=== PATIENT | male | born 1985 | race African-American/Black ===

== ENCOUNTER 2018-12-22 08:32 | Emergency (ER) | payer MEDICAID, SELFPAY ==
[2018-12-22 08:33] VITALS: BP 130/75; PULSE 84; RESP 16; TEMP 36.6; O2SAT 99; BMI 19.4
--- NOTE | 2018-12-22 08:48 | US_ITS ---
STUDY: ABDOMINAL ULTRASOUND - RIGHT UPPER QUADRANT REASON FOR VISIT: Male, 33 years old. Right upper quadrant abdominal pain and vomiting. TECHNIQUE: Ultrasound evaluation of the right upper quadrant was performed with real-time and static ballard-scale imaging. TECHNICAL QUALITY: Adequate. COMPARISON: Prior comparison studies are not available for review at this time. FINDINGS: Liver: The liver measures 14.3 cm. There is normal echogenicity of the liver. The bile ducts are within normal limits. There is hepatic color flow. The direction of portal flow is hepatopetal. There is no demonstrated mass lesion. Gallbladder: Normal distended gallbladder. The gallbladder wall measures 1.7 mm. There is a negative sonographic Chavira's sign. There is no pericholecystic fluid. There are no gallstones. Common Bile Duct (C.B.D.): The common bile duct measures 1.7 mm. Pancreas: Normal size of the head, body and tail of the pancreas. There is normal echogenicity of the pancreas. There is no demonstrated pancreatic mass or cyst. Right Kidney: Normal size of the right kidney. The right kidney measures 10.7 x 5.7 x 4.0 cm. Normal renal cortex. The right cortex measures 2.2 cm. There is no demonstrated renal mass or cyst. There is no right hydronephrosis. US/Gallbladder IMPRESSION: Normal right upper quadrant ultrasound examination. Electronically Signed: Rebecca Davis MD at 9:51 EDT , Service support ,
--- NOTE | 2018-12-22 08:49 | ED.DCSUM_ITS ---
History of Present Illness Chief Complaint: Abd Pain Informant: Patient Onset: Days - 4 Narrative: 4-day history mid abdominal pain with vomiting diarrhea. No hematemesis, melena, or hematochezia. States been having daily episodes of this. Reports having food aversion, ate gonzalez last night which worsened the symptoms. No fever, chills, sweats. States he drinks alcohol occasionally every 2 months. Tobacco history. Denies any illicit drugs. No history of gastric ulcers or kidney injury. Last vomiting last night, last loose stools this morning. No recent antibiotics. No recent travel. Denies eating any abnormal foods prior to symptoms occurring. States does have pain in the upper abdomen also. Reports pain goes to the left side of his back. States urine frequency. Denies any daily medications. Denies any surgical history. Prior similar symptoms: No Past Medical History - Allergies and Home Meds Allergies/Adverse Reactions: Allergies No Known Allergies Allergy (Verified 12/22/18 08:33) Primary Care Physician: Care Physician,No Primary [NON-STAFF] - Smoking Status: Current every day smoker Review of Systems General: Denies: Chills, Fever, Sweats Eyes: Denies: Visual changes - bilaterally, Diplopia ENT: Denies: Rhinorrhea, Sore throat Cardiovascular: Denies: Chest pain, Palpitations Respiratory: Denies: Dyspnea, Cough, Dyspnea on exertion Gastrointestinal: Reports: Abdominal pain, Nausea, Vomiting, Diarrhea. Denies: Melena, Hematochezia Genitourinary: Denies: Dysuria, Hematuria, Frequency Musculoskeletal: Denies: Back pain, Extremity Pain Skin: Denies: Rash, Wounds Neurological: Denies: Headache, Weakness, Numbness Physical Exam Vital Signs/Narrative: Vital Signs Temp Pulse Resp BP Pulse Ox 12/22/18 08:33 98 F 84 16 130/75 H 99 Inital Vital Signs reviewed: Yes General: Well nourished, Well developed, No Acute Distress Head: Normocephalic, Atraumatic Eyes: Perrl, EOMI ENT: No rhinorrhea, Dry mucous membranes Neck: Supple, Nontender Cardiovascular: Regular rate, Regular rhythm, No murmurs Respiratory: No distress, CTA bilaterally, Chest nontender Abdomen: Soft, Nondistended, Normal bowel sounds, Tender, - - Mild right upper quadrant tenderness without guarding or rebound. Mild mid abdominal pain without guarding or rebound. Negative Chavira's or McBurney's tenderness. Back: Nontender, Normal Inspection. Negative for: CVA tenderness Extremities: Nontender, No edema Skin: Normal color, No rash Neurological: Alert, Oriented x3, Cranial nerves II-XII grossly intact, Normal Strength, Normal Sensation Psychological: Normal affect, Normal Mood Diagnostic/Tx/Re-eval Abnormal Lab Results 12/22/18 12/22/18 12/22/18 09:00 09:00 09:00 WBC 5.8 RBC 5.36 Hgb 15.2 Hct 47.5 MCV 88.6 MCH 28.4 MCHC 32.0 RDW Std Deviation 42.6 RDW Coeff of Kaya 13.1 Plt Count 241 MPV 9.5 Immature Gran % (Auto) 0.200 Neut % (Auto) 49.4 Lymph % (Auto) 42.3 H [place] % (Auto) 5.7 Eos % (Auto) 1.9 Baso % (Auto) 0.5 Absolute Neuts (auto) 2.9 Absolute Lymphs (auto) 2.46 Nucleated RBC % 0 Sodium 139 Potassium 3.7 Chloride 106 Carbon Dioxide 28.0 Anion Gap 5 BUN 12 Creatinine 1.13 Estim Creat Clear Calc 73.35 Est GFR (MDRD) Af Amer 96 Est GFR (MDRD) Non-Af 79 BUN/Creatinine Ratio 10.6 Glucose 78 Calcium 8.8 Total Bilirubin 0.50 Direct Bilirubin 0.16 AST 31 ALT 24 Alkaline Phosphatase 67 Total Protein 7.9 Albumin 3.8 Globulin 4.1 Lipase 81 Urine Color Yellow Urine Clarity Clear Urine pH 6.0 Ur Specific [place] 1.010 Urine Protein Negative Urine Glucose (UA) Normal Urine Ketones Negative Urine Occult Blood Negative Urine Nitrite Negative Urine Bilirubin Negative Urine Urobilinogen 1 H Ur Leukocyte Esterase 25 H Urine RBC 0-5 SEEN Urine WBC 0-5 SEEN Ur Squamous Epith Cells 0-5 SEEN Urine Bacteria 0 SEEN Urine Mucus 0 SEEN Clinical Impression(s) from Imaging Studies Gallbladder Ultrasound 12/22/18 08:48 IMPRESSION: Normal right upper quadrant ultrasound examination. Electronically Signed: Rebecca Davis MD at 9:51 EDT , Service support , Patient nontoxic, had dry mucosa membranes on exam his vitals are stable. Is been having diarrhea and vomiting is given a liter of fluids, Zofran, Toradol. Abdominal labs are all normal. Ultrasound gallbladder obtained due to slight right upper quadrant tenderness and food aversion, results were normal. Reevaluation he had no additional loose stools, is no C. difficile risk factors. Discussed likely gastroenteritis at this time. He is able to tolerate oral fluids. We placed on Zofran and Bentyl as needed. He will follow-up with PCP reevaluation discussed the more food intolerance causing symptoms may likely need further testing with a HIDA scan. Signs and symptoms discussed to return, otherwise follow with PCP. All questions were answered. ED Disposition - Plan for ED Patient: Disposition: Home or Assisted Living Diagnosis: Nausea vomiting and diarrhea, Abdominal pain Instructions: ABDOMINAL PAIN, Unkown Cause, (Male), VOMITING AND DIARRHEA, Nonspecific (Adult) Prescriptions: Dicyclomine HCl [Bentyl] 20 mg PO TID PRN PRN #10 capsule PRN Reason: abdominal pain Ondansetron [Zofran Odt] 4 mg PO Q8H PRN PRN #10 tablet PRN Reason: Nausea Referrals: Care Physician,No Primary [NON-STAFF] - Jalen Motley MD [Primary Care Provider] - 3-5 Days if not improving
[2018-12-22] MEDS: Ketorolac 30 MG/ML Syringe IV (09:03)
[2018-12-22] MEDS: Ondansetron 4 MG/2 ML Vial IV (09:03)
[2018-12-22] MEDS: 0.9% Normal Saline 1,000 ML 1000 ML IV (09:03)
[2018-12-22 09:07] LABS: Bacteria 0 SEEN /hpf (None Seen); Mucous, Urine 0 SEEN /hpf (<or=2+)
[2018-12-22 09:08] LABS: Color, Urine Yellow (Yellow); Glucose, Dipstick Normal (Normal); Ketone-Dipstick Negative (Negative); Leukocyte Esterase-Dipstick 25 /ul (Negative); Nitrite-Dipstick Negative (Negative); Occult Blood-Urine Negative /ul (Negative); Protein-Dipstick Negative (Negative); Urine Bilirubin Dipstick Negative (Negative); Urine Clarity Clear (Clear); Urine Urobilinogen 1 mg/dl (Normal)
[2018-12-22 09:11] LABS: Absolute Lymphocyte Count 2.46 X10^3/uL (0.83-4.51); Absolute Neutrophil Count 2.9 X10^3/uL (2.0-7.7); Basophil# 0.03 X10^3/uL; Basophil% 0.5 % (0-1); Eosinophil# 0.11 X10^3/uL; Eosinophils% 1.9 % (0-5); Hematocrit 47.5 % (40-54); Hemoglobin 15.2 g/dL (13.0-16.5); Lymphocyte # 2.46 X10^3/ul (4.0); Lymphocyte % 42.3 % (19-41); Mean Corpuscular Hgb 28.4 pg (27.0-32.0); Mean Corpuscular Volume 88.6 fL (80-94); Mean Platelet Vol. 9.5 fl (6.2-12.0); Monocyte# 0.33 X10^3/uL; Monocyte% 5.7 % (0-10); NRBC Flagged by Analyzer 0 % (0-5); Neutrophil # 2.88 X10^3/uL (2.7-7.7); Neutrophil % 49.4 % (47-70); Platelet Count 241 K/mm3 (150-450); RBC Distribution Width CV 13.1 % (11.6-14.6); RBC Distribution Width SD 42.6 fl (35.1-43.9); Red Blood Count 5.36 M/mm3 (4.6-6.2); White Blood Count 5.8 K/mm3 (4.4-11.0)
[2018-12-22 09:16] LABS: Red Blood Cells-Urine 0-5 SEEN /hpf (0-5); Squamous Epithelial Cells - UA 0-5 SEEN /hpf (0-5); White Blood Cells 0-5 SEEN /hpf (0-5)
[2018-12-22 09:28] LABS: AST(SGOT) 31 U/L (15-37); Alanine Aminotransfer ALT/SGPT 24 U/L (16-61); Albumin, Serum 3.8 g/dL (3.2-5.0); Alkaline Phosphatase 67 U/L (45-117); Anion Gap 5 (5-15); BUN 12 mg/dL (7-18); BUN/Creat Ratio 10.6 RATIO (10-20); Bilirubin, Direct 0.16 mg/dL (0.00-0.30); Calcium,Total 8.8 mg/dL (8.5-10.1); Chloride 106 mmol/L (98-107); Creatinine, Serum 1.13 mg/dL (0.70-1.30); EST Glomerular Filtration Rate 79 mL/min (>60); Est Glom Filt Rate - Afr Amer 96 mL/min (>60); Estimated Creatinine Clearance 73.35 ml/min; Globulin 4.1 g/dL (2.2-4.2); Glucose 78 mg/dL (74-106); Lipase 81 U/L (73-393); Potassium 3.7 mmol/L (3.5-5.1); Protein, Total 7.9 g/dL (6.4-8.2); Sodium Level 139 mmol/L (136-145)
[2018-12-22 11:11] VITALS: BP 114/67; PULSE 59; RESP 16; O2SAT 98
[2018-12-22 11:34] VITALS: BP 123/66; PULSE 71; RESP 15; O2SAT 100
== END 2018-12-22 11:34 | disposition home or self-care (01) ==
PROVIDERS: Emergency Provider Emergency Medicine; Family Provider Family Medicine; PCP Family Medicine
DX: R11.2 Nausea with vomiting, unspecified (principal); R19.7 Diarrhea, unspecified; R10.11 Right upper quadrant pain; R35.0 Frequency of micturition; F17.200 Nicotine dependence, unspecified, uncomplicated
CPT/HCPCS: 76705; 80048; 80076; 81001; 83690; 85025; 96361; 96374; 96375; 99283; J7030; A4216; J2405

== ENCOUNTER 2019-05-27 08:38 | Emergency (ER) | payer SELFPAY ==
[2019-05-27 08:41] VITALS: BP 163/95; PULSE 60; RESP 18; TEMP 36.9; O2SAT 100; BMI 22.8
--- NOTE | 2019-05-27 08:51 | ED.VIS.DENTA ---
History of Present Illness Chief Complaint: Dental Informant: Patient Onset: Days - Onset approximately 5 days ago, May 22. Context: Sudden Onset Timing: Continuous Quality: Pain Location: Right jaw Current Severity: Mild Maximum Severity: Severe Worsened by: Chewing and cold Associated Symptoms: Jaw Swelling, Facial Swellling, Cold Narrative: She is a 33-year-old male who presents with jaw pain. He denies odor to his breath. Nuys difficulty opening or closing his mouth complete. He denies change in voice. He denies history medic fever heart murmur or IV drug use. He is not immune suppressed. He states he receives his dental care at [facility]. He has not noted a rash. He denies headache. He denies visual, ocular auditory symptoms. He does complain of ear pain and localizes near the angle of the mandible. Prior similar symptoms: No Recent Illness/Hospitalization: No - Past Medical History (1) No significant past medical history Status: Acute Past Medical History - Allergies and Home Meds Allergies/Adverse Reactions: Allergies No Known Allergies Allergy (Verified 05/27/19 08:43) Primary Care Physician: Jalen Motley MD [Primary Care Provider] - Prior records reviewed: No Surgical History: no surgical history Lives: Alone Smoking Status: Current every day smoker Alcohol: Rare Drugs: None Review of Systems General: Denies: Chills, Fever, Malaise, Sweats Eyes: Denies: Visual changes - bilaterally, Blurred Vision - bilaterally, Diplopia ENT: Denies: Bilateral ear pain, Rhinorrhea, Sore throat Cardiovascular: Denies: Chest pain, Palpitations Respiratory: Denies: Dyspnea, Cough, Dyspnea on exertion Gastrointestinal: Denies: Nausea, Vomiting Musculoskeletal: Denies: Myalgias, Arthralgias, Neck pain, Back pain, Swelling, Extremity Pain, -, - Skin: Denies: Rash, Wounds Hematologic: Denies: Easy bruising, Easy bleeding Allergy: Denies: Uticaria, Swelling of the mouth, Swelling of the tongue Physical Exam Vital Signs/Narrative: Vital Signs Temp Pulse Resp BP Pulse Ox 05/27/19 08:41 98.5 F 60 18 163/95 H 100 Inital Vital Signs reviewed: Yes General: Well nourished, Well developed Head: Normocephalic, Atraumatic ENT: Moist mucous membranes, Nasal congestion, No nasal trauma, No rhinorrhea, TM's clear. Negative for: Sinus tenderness, TM erythema left, TM erythema right Mouth/Throat: Normal oral mucosa, Normal posterior oropharynx, No sublingual edema, Normal Stensen's duct, Dental abscess, Focal dental decay, Gingivitis, Tenderness on tooth percussion. Negative for: Normal inspection lips/gums, No dental tenderness, No focal abscess, Apthous ulcer, Dental trauma, Dental avulsion, Dentral fracture, Filling loss, Trismus, Widespread dental decay Neck: Supple, Nontender, No JVD, Posterior submandibular lymphadenopathy, Soft tissue swelling. Negative for: Anterior submental lymphadenopathy, Posterior submental lymphadenopathy, Submandibular soft tissue swelling, Submental soft tissue swelling, Parotid tenderness Cardiovascular: Regular rate, Regular rhythm, No murmurs, Normal S1, Normal S2 Respiratory: No distress, CTA bilaterally, Chest nontender Skin: Normal color, No rash, No Trauma. Negative for: Cyanosis, Diaphoresis, Jaundice Neurological: Alert, Oriented x3, Cranial nerves II-XII grossly intact, Normal Strength, Normal Sensation, Normal Gait Psychological: Normal affect Diagnostic/Tx/Re-eval - Medical Decision Making She has a cavity tooth #14. There is swelling in that region. There is no evidence of Bebeto's angina. There is no evidence of facial cellulitis. Patient states he has to pay for his own prescription. He was prescribed anti-inflammatory, opiate analgesia and antibiotic. He was instructed to follow-up with his dentist in 5 to 7 days. ED Disposition - Plan for ED Patient: Disposition: Home or Assisted Living Diagnosis: Dental abscess, Infected dental carries Instructions: Dental Abscess Prescriptions: Naproxen [Naprosyn] 500 mg PO BID #14 tab Transmission Status: Pending to [facility] Hydrocodone Bitart/Apap 5-325 [[place] 5MG-325MG] 1 tablet PO Q6H PRN PRN 3 Days #10 tablet PRN Reason: Pain Transmission Status: Sent to [facility] Penicillin V Potassium 500 mg PO 4X/DAY #40 tab Transmission Status: Pending to [facility] Referrals: Jalen Motley MD [Primary Care Provider] - Additional Instructions: Need to follow-up with your dentist in 5 to 7 days.
[2019-05-27] MEDS: Penicillin Vk 250 MG Tablet 500 MG PO (09:01)
[2019-05-27] MEDS: Naproxen 250 MG Tablet 500 MG PO (09:01)
[2019-05-27] MEDS: HYDROcodone Bitartrate/Apap 5/325 Tablet PO (09:01)
--- NOTE | 2019-05-27 09:04 | ED.RN ---
DISCHARGE INSTRUCTIONS GIVEN TO AND REVIEWED WITH PATIENT, PATIENT DENIES QUESTIONS OR CONCERNS AND VOICES UNDERSTANDING OF DISCHARGE INSTRUCTIONS. PT AMBULATES OUT OF ROOM WITHOUT DIFFICULTY.
== END 2019-05-27 09:12 | disposition home or self-care (01) ==
LOC: ED 09:08
PROVIDERS: Emergency Provider Emergency Medicine; PCP Family Medicine
DX: K04.7 Periapical abscess without sinus (principal); K02.9 Dental caries, unspecified; F17.200 Nicotine dependence, unspecified, uncomplicated
CPT/HCPCS: 99283

== ENCOUNTER 2019-09-04 14:45 | Emergency (ER) | payer MEDICAID, SELFPAY ==
[2019-09-04 14:47] VITALS: BP 125/73; PULSE 80; RESP 16; TEMP 36.4; O2SAT 99; BMI 20.9
--- NOTE | 2019-09-04 14:55 | CT_ITS ---
STUDY: CT ABDOMEN AND PELVIS WITH CONTRAST REASON FOR EXAM: Male, 33 years old. UMBILICAL ABD PAIN SINCE WEDNESDAY, DIZZINESS, N/V, HX-ASTHMA RADIATION DOSAGE (If Supplied By Facility): CTDIvol = ( 7.88 ) mGy, DLP = ( 395.75 ) mGycm TECHNIQUE: Transaxial images were obtained from the dome of the diaphragm to the symphysis pubis without oral contrast. Oral and amp; IV Gastrografin and amp; 100mL Isovue-370 was administered. Sagittal and coronal images were reconstructed. Individualized dose optimization techniques were used for this CT. COMPARISON: None. FINDINGS: There is atelectasis within the dependent portion of the lungs. The visualized portions of the heart are within normal limits. Normal liver. Contracted thick-walled gallbladder without calcified stones possibly physiologic however if concern for gallbladder disease ultrasound recommended. Normal spleen. Normal pancreas. Normal bilateral adrenal glands. Normal right kidney. Normal left kidney. Concentric thickening of the ackerman of the stomach which may be consistent with nonspecific gastritis. Normal small intestine. Normal colon. The appendix is visualized and appears normal. Normal abdominal aorta. Normal inferior vena cava. Normal retroperitoneum. Normal urinary bladder. Normal abdominal wall. Normal osseous structures. CT/Abdomen/Pelvis WITH Contrast IMPRESSION: Contracted thick-walled gallbladder without calcified stones likely physiologic however if concern for gallbladder disease ultrasound. Findings which may be consistent with nonspecific gastritis.. No evidence for small bowel obstruction. No evidence for acute appendicitis. Electronically Signed: Trent Damon MD at 17:30 EDT , Service support ,
--- NOTE | 2019-09-04 14:56 | ED.DCSUM_ITS ---
- ER Visit Summary Date of Service: 09/04/19 Chief Complaint: Abdominal pain History of Present Illness: The patient is a 33 M presenting with abdominal pain. He states this started on Wednesday. He complains of associated nausea and vomiting. Denies diarrhea. He complains of mid abdominal pain and decreased appetite. He states he vomited 1 time today. No blood in his emesis. He had an episode where he felt dizzy but did not pass out. He denies fever or other complaints. Physical Examination: Vitals are stable. Patient is afebrile. Alert no acute distress. HEENT exam is unremarkable. Neck is supple. Lungs are clear and equal bilaterally. Heart is regular rate and rhythm. Abdomen is soft periumbilical tenderness with no guarding or rebound Extremities are unremarkable. Skin is warm and dry. No focal neurologic deficit. Remainder of exam is unremarkable. Emergency Department Course and Treatment: Patient given IV fluids, Zofran. CBC, chemistries unremarkable. Liver lipase are normal. CT abdomen pelvis shows contracted thick-walled gallbladder without calcified stones likely physiologic however if concern for gallbladder disease ultrasound. Findings which may be consistent with nonspecific gastritis. No evidence for small bowel obstruction. No evidence for acute appendicitis. On reevaluation, patient feels improved. He is able to tolerate p.o. in the emergency department. He has no right upper quadrant tenderness. He is given a prescription for Pepcid. Advised to follow-up with primary care physician. Advised return to ED for worsening complaints. Disposition: Discharge home Impression: Abdominal pain This note was generated with [employer] dictation software. It may contain incorrect words, spelling, and punctuation that were not noted in review of the chart prior to signing ED Disposition - Plan for ED Patient: Instructions: ED Unknown Causes of Abdominal Pain Male Prescriptions: Famotidine [Pepcid] 20 mg PO BID #28 tab Prescription Printed Referrals: Jalen Motley MD [Primary Care Provider] -
[2019-09-04] MEDS: 0.9% Normal Saline 1,000 ML 1000 ML IV (15:27)
[2019-09-04] MEDS: Ondansetron 4 MG/2 ML Vial IV (15:27)
[2019-09-04 15:40] LABS: Absolute Lymphocyte Count 1.95 X10^3/uL (0.83-4.51); Basophil# 0.01 X10^3/uL; Basophil% 0.2 % (0-1); Eosinophil# 0.11 X10^3/uL; Hematocrit 43.6 % (40-54); Hemoglobin 13.6 g/dL (13.0-16.5); Lymphocyte # 1.95 X10^3/ul (4.0); Mean Corp Hgb Conc 31.2 g/dL (32-36); Mean Corpuscular Hgb 28.5 pg (27.0-32.0); Mean Corpuscular Volume 91.2 fL (80-94); Mean Platelet Vol. 10.2 fl (6.2-12.0); Monocyte# 0.31 X10^3/uL; Monocyte% 5.7 % (0-10); NRBC Flagged by Analyzer 0 % (0-5); Neutrophil # 3.03 X10^3/uL (2.7-7.7); Neutrophil % 55.9 % (47-70); Platelet Count 212 K/mm3 (150-450); RBC Distribution Width CV 13.6 % (11.6-14.6); Red Blood Count 4.78 M/mm3 (4.6-6.2); White Blood Count 5.4 K/mm3 (4.4-11.0)
[2019-09-04 16:01] LABS: ALB/GLOB Ratio 0.8 RATIO (0.9-2.4); AST(SGOT) 37 U/L (15-37); Alanine Aminotransfer ALT/SGPT 29 U/L (16-61); Albumin, Serum 3.4 g/dL (3.2-5.0); Alkaline Phosphatase 52 U/L (45-117); Anion Gap 4 (5-15); BUN 9 mg/dL (7-18); BUN/Creat Ratio 8.3 RATIO (10-20); Calcium,Total 8.7 mg/dL (8.5-10.1); Chloride 110 mmol/L (98-107); Creatinine, Serum 1.08 mg/dL (0.70-1.30); EST Glomerular Filtration Rate 83 mL/min (>60); Est Glom Filt Rate - Afr Amer 100 mL/min (>60); Estimated Creatinine Clearance 82.74 ml/min; Glucose 67 mg/dL (74-106); Lipase 93 U/L (73-393); Potassium 3.9 mmol/L (3.5-5.1); Protein, Total 7.4 g/dL (6.4-8.2); Sodium Level 141 mmol/L (136-145)
--- NOTE | 2019-09-04 17:57 | ED.DEP ---
ED Disposition - Plan for ED Patient: Instructions: ED Unknown Causes of Abdominal Pain Male Prescriptions: Famotidine [Pepcid] 20 mg PO BID #28 tablet Referrals: Jalen Motley MD [Primary Care Provider] -
[2019-09-04 18:08] VITALS: BP 117/74; PULSE 46; RESP 15
== END 2019-09-04 18:09 | disposition home or self-care (01) ==
LOC: ED 15:44
PROVIDERS: Emergency Provider Emergency Medicine; PCP Family Medicine
DX: R10.9 Unspecified abdominal pain (principal); R11.2 Nausea with vomiting, unspecified; R42 Dizziness and giddiness; Z72.0 Tobacco use
CPT/HCPCS: 74177; 80053; 83690; 85025; 96361; 96374; 99283; J7030; Q9967; A4216; J2405

== ENCOUNTER 2020-01-12 11:40 | Emergency (ER) | payer MEDICAID, SELFPAY ==
[2020-01-12 11:41] VITALS: BP 127/76; PULSE 82; RESP 16; TEMP 36.3; O2SAT 100; BMI 22.7
--- NOTE | 2020-01-12 12:08 | CT_ITS ---
STUDY: CT BRAIN WITHOUT CONTRAST REASON FOR EXAM: Male, 34 years old. RIGHT HAND WEAKNESS RADIATION DOSAGE (If Supplied By Facility): CTDIvol = ( 44.99 ) mGy, DLP = ( 762.36 ) mGycm TECHNIQUE: Transaxial CT imaging of the brain was performed without administration of intravenous contrast material. Individualized dose optimization techniques were used for this CT. COMPARISON: No relevant priors. FINDINGS: Normal soft tissue structures. Normal calvarium. Normal size ventricles and extra-axial spaces for the patient''s age. Normal white matter tracts of the cerebral hemispheres. Normal basal ganglia and thalami. Normal brainstem. Normal cerebellum. There is no intracranial hemorrhage. There are no findings of an acute ischemic infarction. Normal visualized paranasal sinuses. CT/Brain/Head without Contrast IMPRESSION: Normal unenhanced CT scan of the brain. Electronically Signed: Lobo Jim, at 12:32 EDT , Service support ,
--- NOTE | 2020-01-12 12:09 | ED.VISSUMM ---
- ER Visit Summary Date of Service: 01/12/20 Chief Complaint: Atraumatic right hand weakness History of Present Illness: The patient is a 34 M denies any seen in past medical or surgical history. Patient is on no medications. States 3 days ago he fell asleep in a chair did not think he did anything wrong or abnormal or different to his right upper extremity. He then went to bed that night when he woke up the next morning he said he had weakness in his right hand really denies any pain. He is right-hand dominant. No prior history. No other symptoms. He denies any headache or head trauma. He denies any weakness or numbness to his left upper or lower extremities. He denies any ataxia while walking. He denies any headaches. Physical Examination: Young male no acute distress. Vital signs stable afebrile. HEENT exam unremarkable atraumatic. Pupils are reactive light. Normal speech. No facial droop. Neck nontender. No lymphadenopathy. Lungs clear to auscultation. Heart regular rhythm no murmur. Abdomen soft nontender. Normal bowel sounds no peritoneal signs. Extremities left upper and both lower extremities are normal. He has normal relationship management lead strength in the left hand. Normal dorsi plantarflexion. Normal strength and sensation. The right upper extremity the right shoulder and elbow appear unremarkable atraumatic. He has normal range of motion to the right shoulder and right elbow. They are nontender. No deformity. No axillary lymphadenopathy. The right wrist is nontender nondeformed. He has normal radial pulse. His relationship management lead strength is probably 30 to 40% of its normal is obvious weakness in his relationship management lead strength on the right hand. He is able to open close his hand. He has greatly decreased dexterity in the right hand. Back nontender. Neurologically decreased strength in the right hand otherwise unremarkable. Other extremities are unremarkable. Right hand has normal sensation. Test Results: CAT scan of the brain without contrast shows no acute abnormality. Read by the radiologist and reviewed by me. No bleed no stroke seen. Emergency Department Course and Treatment: Clinically the patient has a peripheral neuropathy in his right hand. Consistent with a wrist drop. He did fall asleep in a chair but thought he was using it normally when he woke up before he went to bed. For that reason I will get imaging of his brain. There is no other signs of trauma noted to have any pain I do not feel he needs any x-rays. Repeat exam at 12:40 PM. No change. Patient has normal sensation and pulses of the right hand. His exam is consistent with a peripheral neuropathy. Treatment Plan: Discharge home follow-up with his primary care physician. Disposition: Discharge Impression: Acute right upper extremity peripheral neuropathy (wrist drop) This note was generated with [employer] dictation software. It may contain incorrect words, spelling, and punctuation that were not noted in review of the chart prior to signing ED Disposition - Plan for ED Patient: Disposition: Home or Assisted Living Instructions: ED PERIPHERAL NEUROPATHY, ED Drop Wrist Referrals: Jalen Motley MD [Primary Care Provider] - 3-5 Days if not improving Additional Instructions: This should improve with time. Follow-up with your primary care physician next week.
--- NOTE | 2020-01-12 12:50 | ED.DEP ---
ED Disposition - Plan for ED Patient: Disposition: Home or Assisted Living Instructions: ED PERIPHERAL NEUROPATHY, ED Drop Wrist Referrals: Jalen Motley MD [Primary Care Provider] - 3-5 Days if not improving Additional Instructions: This should improve with time. Follow-up with your primary care physician next week.
== END 2020-01-12 13:16 | disposition home or self-care (01) ==
PROVIDERS: Emergency Provider Emergency Medicine; PCP Family Medicine
DX: G62.9 Polyneuropathy, unspecified (principal); M21.331 Wrist drop, right wrist; Z72.0 Tobacco use
CPT/HCPCS: 70450; 99284